=== PATIENT | female | born 1975 | race Caucasian/White ===

== ENCOUNTER 2022-03-20 09:50 | Outpatient (REF) | payer BC, SELFPAY ==
[2022-03-20 17:05] LABS: CT PCR NOT DETECTED (Not Detect.); NG PCR NOT DETECTED (Not Detect.)
[2022-03-21 08:56] LABS: Follicle Stimulating Hormone 1.1 mIU/mL
[2022-03-21 09:21] LABS: BV Int Neg Control Negative (Negative); BV Int Pos Control Positive (Positive)
== END 2022-03-20 09:51 | disposition home or self-care (01) ==
LOC: HO.LAB 09:50
PROVIDERS: PCP Nurse Practitioner Family; Visit Provider Advanced Practice Midwife
DX: N93.0 Postcoital and contact bleeding (principal); Z30.431 Encounter for routine checking of intrauterine contraceptive device; Z32.02 Encounter for pregnancy test, result negative
CPT/HCPCS: 36415; 81025; 83001; 87480; 87491; 87510; 87591; 87660

== ENCOUNTER 2022-05-30 10:40 | Outpatient (REF) | payer BC, SELFPAY ==
--- NOTE | ~2022-05-30 | US_ITS ---
EXAMINATION: US PELVIS CLINICAL INFORMATION: Postcoital and contact bleeding. COMPARISON: None TECHNIQUE: Ultrasound of the pelvis is performed using both transabdominal and transvaginal transducers along with Doppler. Transvaginal imaging is performed due to inadequate visualization transabdominally. FINDINGS: Uterus: The uterus is anteverted and measures 4.7 cm in length, 2.9 cm in AP, and 3.9 cm in transverse dimension. There is an IUD within the endometrial canal with endometrial thickness is not seen. The uterus is smooth in contour and has normal myometrial echogenicity. No visible fibroid. Adnexa: Both ovaries are visualized. There is normal color-flow to the adnexa. There is no ovarian torsion. There is no pelvic ascites or fluid collection. Right ovary measures 2.6 x 1.1 x 0.9 cm and volume 1.4 mL. There are multiple anechoic cysts measuring 0.8 x 0.5 x 1.3 cm. Left ovary measures 3.7 x 1.7 x 1.6 cm and volume of 5.3 mL. There is an anechoic cyst measuring 1.3 x 0.8 x 1.2 cm. There is no free fluid in the cul-de-sac. US/US pelvic and transvaginal IMPRESSION: There is an IUD within the endometrial canal in correct position. The uterus is unremarkable. There are bilateral ovarian cysts. There is no free fluid in the cul-de-sac.
== END 2022-05-30 10:41 | disposition home or self-care (01) ==
LOC: HO.US 10:40
PROVIDERS: Visit Provider Advanced Practice Midwife
DX: N93.0 Postcoital and contact bleeding (principal); Z30.431 Encounter for routine checking of intrauterine contraceptive device
CPT/HCPCS: 76830; 76856

== ENCOUNTER 2023-09-05 14:46 | Outpatient (AMB) | payer BC, SELFPAY ==
--- NOTE | 2023-09-05 15:06 | MHC.OFFVIS ---
Intake Vital Signs 09/05/23 15:07 Height 5 ft 4 in Weight 121 lb BMI 20.8 BP 140/92 H Intake Visit Reasons: IUD consult removal Intake Note: would like IUD removal because got a vasectomy [employer] Manager Required: No Information Interpreted: non-clinical & clinical Inspector Bicycle: Inspector Bicycle Present (Aidyn) Allergies No Known Allergies Allergy (Verified 09/05/23 15:11) Medication List - Last Reconciled 09/05/23 by Ling Rasheed CNM levonorgestrel (Mirena) intrauterine Is last menstrual period known: No Post menopausal: No HPI IUD consult removal HPI Details Patient is here because she wanted to talk about taking out her IUD she thought it needed to be removed because it is over 6 years now she has Mirena IUD for control but she also likes the side effect of not having her periods she had an FSH level done last year that showed she was still very much in the premenopausal range and so did need control in the meantime her did go and get a vasectomy but he never went back for the sperm count. She likes not having her periods. She does not know at what age her mother or any older sisters went through menopause. She had been concerned about the Mirena IU S because she did have spotting especially with sex and sometimes at other times but she has not been paying attention to see if it is cyclic all our not. She did have a very painful insertion the last time and the positioning of the Mirena had to be checked and verified with ultrasound because the insertion procedure was so challenging. She had IUDs previously as well but that was the only difficult insertion she was not getting her. According to the notes of the day of the insertion nor was she getting her. With the previous IUD exchange so this is probably her 3rd or 4th IUD. She had got her last Pap smear with her primary care provider in her town because it was more convenient. Previous to that she had been coming here to the OB practices here and see has seen many of the providers here and in historical data there are many Pap smears and she remembers having an abnormal 1 years back and having something frozen on her cervix. She does not remember when that was so we researched together her previous Paps it turns out she had a Pap with ASCUS in 2014 but with negative HPV and then in 2011 she had a negative Pap with negative HPV. There were Paps in the system previous to that as well. 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 Lengthy discussion took place about of all of this. As regards the Mirena while it can be left in anywhere between 5 years and 8 years, it can be used for 5 years to help prevent bleeding and 8 years for contraception however I did caution her to be aware of any returned to menstrual cycles because that could signal a changed and that it may be running out. Additionally she could speak to her about getting sperm count done which would settle back question. Since she does not want a returned to her periods if she does notice that they start returning then she should arrange for replacement ideally in the 1st day of her period because it will be an easier process for her physically as well. Additionally she could repeat the FSH level but since she has not had any symptoms of menopause yet that would be up to her.. Additionally secondary to the review of Pap smears and the Pap smear showing ASCUS in 2014 with a reported negative Pap in 2020 she may not want await 5 years for the next Pap but consider repeating the Pap by next year. She may schedule an annual exam with Pap at her convenience.. She is physically not having any issues or problems with the IUD today she simply wanted to talk about what would be the next step after all of this discussion she said she is going to think about it and I gave for the up-to-date Mirena brochure that speaks about the length of time it can be used and she is going to think about it and consider when she would want to replace it if at all and she will schedule an annual exam at her convenience she has not had any bleeding with intercourse in quite some time [facility] Social History Patient Tobacco Use Status: Never used Tobacco Female Reproductive History Menstrual Age of Menarche: 12 control method: progestin IUCD Total pregnancies: 5 Full term: 2 Number of Living Children: 2 Ab spontaneous: 3 Physical Exam Vital Signs: Last Vital Signs BP 140/92 H 09/05/23 15:07 BMI result Body Mass Index 20.8 Assessment & Plan Assessment & Plan (1) IUD surveillance: Code(s): Z30.431 - Encounter for routine checking of intrauterine contraceptive device Plan Patient is here because she wanted to talk about taking out her IUD she thought it needed to be removed because it is over 6 years now she has Mirena IUD for control but she also likes the side effect of not having her periods she had an FSH level done last year that showed she was still very much in the premenopausal range and so did need control in the meantime her did go and get a vasectomy but he never went back for the sperm count. She likes not having her periods. She does not know at what age her mother or any older sisters went through menopause. She had been concerned about the Mirena IU S because she did have spotting especially with sex and sometimes at other times but she has not been paying attention to see if it is cyclic all our not. She did have a very painful insertion the last time and the positioning of the Mirena had to be checked and verified with ultrasound because the insertion procedure was so challenging. She had IUDs previously as well but that was the only difficult insertion she was not getting her. According to the notes of the day of the insertion nor was she getting her. With the previous IUD exchange so this is probably her 3rd or 4th IUD. She had got her last Pap smear with her primary care provider in her town because it was more convenient. Previous to that she had been coming here to the OB practices here and see has seen many of the providers here and in historical data there are many Pap smears and she remembers having an abnormal 1 years back and having something frozen on her cervix. She does not remember when that was so we researched together her previous Paps it turns out she had a Pap with ASCUS in 2014 but with negative HPV and then in 2011 she had a negative Pap with negative HPV. There were Paps in the system previous to that as well. 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 Lengthy discussion took place about of all of this. As regards the Mirena while it can be left in anywhere between 5 years and 8 years, it can be used for 5 years to help prevent bleeding and 8 years for contraception however I did caution her to be aware of any returned to menstrual cycles because that could signal a changed and that it may be running out. Additionally she could speak to her about getting sperm count done which would settle back question. Since she does not want a returned to her periods if she does notice that they start returning then she should arrange for replacement ideally in the 1st day of her period because it will be an easier process for her physically as well. Additionally she could repeat the FSH level but since she has not had any symptoms of menopause yet that would be up to her.. Additionally secondary to the review of Pap smears and the Pap smear showing ASCUS in 2014 with a reported negative Pap in 2020 she may not want await 5 years for the next Pap but consider repeating the Pap by next year. She may schedule an annual exam with Pap at her convenience.. She is physically not having any issues or problems with the IUD today she simply wanted to talk about what would be the next step after all of this discussion she said she is going to think about it and I gave for the up-to-date [employer] brochure that speaks about the length of time it can be used and she is going to think about it and consider when she would want to replace it if at all and she will schedule an annual exam at her convenience she has not had any bleeding with intercourse in quite some time Coding Level of Care Code Est Pt Level 3 (77619) Diagnoses IUD surveillance Z30.431 Time Spent (min) 45 Comment 100% [id number] discussing patient concerns and history and plan
[2023-09-05 15:07] VITALS: BP 140/92; BMI 20.8
== END 2023-09-05 16:20 | disposition home or self-care (01) ==
PROVIDERS: PCP Nurse Practitioner Family; Visit Provider Advanced Practice Midwife
DX: Z30.431 Encounter for routine checking of intrauterine contraceptive device (principal)
CPT/HCPCS: 99213

== ENCOUNTER → 2023-09-05 14:46 | Outpatient (BNVA) | payer BC, SELFPAY | PROVIDERS: PCP Nurse Practitioner Family; Visit Provider Advanced Practice Midwife ==